=== PATIENT | female | born 2000 | race Two or more races ===

== ENCOUNTER 2019-08-27 17:29 | Emergency (ER) | payer MEDICAID ==
[~2019-08-27] VITALS: Ht 157.5 cm; Wt 60.0 kg
[2019-08-27 17:53] VITALS: BP 116/71
[2019-08-27] MEDS ORDERED: FLUORESCEIN OPHTHALMIC 1 MG STRIP ONE (18:01)
[2019-08-27] MEDS ORDERED: PROPARACAINE OPHTH 0.5%, 15ML ONE ×2 (18:01→18:34)
[2019-08-27] MEDS ORDERED: FLUORESCEIN/BENOXINATE 5 ML DROPS OP ONE (18:30)
[2019-08-27] MEDS ORDERED: PROPARACAINE OPHTH 0.5%, 15ML EACHEYE ONE (18:30)
== END 2019-08-27 18:54 | disposition home or self-care (01) ==
LOC: ED 18:36
DX: H18.823 Corneal disorder due to contact lens, bilateral (principal); H57.13 Ocular pain, bilateral
CPT/HCPCS: 99283